=== PATIENT | female | born 1970 | race Native Hawaiian/Other Pacific Islander ===

== ENCOUNTER → 2024-08-11 | Outpatient (CLI) | payer MEDICAID, SELFPAY ==
--- NOTE | 2024-08-11 | XR_ITS ---
Examination: Diagnostic digital mammography, bilateral Computer aided detection 3-D breast Tomosynthesis, bilateral Date and time of exam: August 11, 2024 0950 hours Outside mammogram April 25, 2022 focal asymmetry right breast 8 mm upper outer right breast Technique: Nonmagnified MLO, CC views of the breasts to been obtained, reconstructed from 3-D Tomosynthesis images. R2 computer aided detection program utilized for evaluation of suspicious masses and/or abnormal calcifications. 3-D Tomosynthesis images obtained. Findings: Scattered areas of fibroglandular density No suspicious mass Impression: BI-RADS Category 0: Incomplete: Need additional imaging evaluation Recommend right breast sonography follow-up.
--- NOTE | 2024-08-11 09:00 | XR_ITS ---
Examination: Breast ultrasound, unilateral, right complete Date and time of exam: August 03, 2024 1109 hours Comparison July 11, 2022 INDICATIONS: History right breast lump, focal asymmetry outer right breast on outside mammogram July 11, 2022 Technique: Real-time friedman scale ultrasonographic imaging performed right breast including all 4 quadrants as well as nipple retroareolar and axillary region. Findings: No cystic or solid mass IMPRESSION: BI-RADS Category 1: Negative study
== END | disposition home or self-care (01) ==
PROVIDERS: PCP Family Medicine; Referring Provider Student in an Organized Health Care Education/Training Program; Visit Provider Student in an Organized Health Care Education/Training Program
DX: R92.8 Other abnormal and inconclusive findings on diagnostic imaging of breast (principal)
CPT/HCPCS: 76641; 77062; 77066; G0279

== ENCOUNTER 2024-10-25 03:00 | Emergency (ER) | payer MEDICAID, SELFPAY ==
[2024-10-25 03:16] VITALS: BP 129/85; PULSE 97; RESP 18; TEMP 36.9; O2SAT 98
--- NOTE | 2024-10-25 03:29 | EDNOTE_ITS ---
<Statement entered by Lisa Ordoñez MD - 10/27/24 18:54> As co-signing physician, I was present and available for consult prn. I concur with the plan and care as documented by the midlevel provider. Nausea/Vomit./Diarrhea-RME/HPI General Chief complaint: General Adult/Misc Complain Stated complaint: VOMITING,CONSTIPATION Time Seen by Provider: 10/25/24 03:26 Arrival date/time: 10/25/24 03:00 54F with no significant PMH presents to ED with 1 day of N/V and excessive burping. Also some constipation. Patient was recently off of Wegovy at 2.4 mL for about a month and resumed it today. Limitations: no limitations Related Data Previous Rx's ?Medication ?Instructions ?Recorded acetaminophen 500 mg capsule 1,000 mg (2 x 500 mg) PO Q8HR PRN 01/10/20 pain #60 caps ibuprofen 800 mg tablet 800 mg PO TID PRN pain #30 t abs 01/10/20 metoclopramide HCl 5 mg tablet 5 mg PO BID PRN nausea and 10/25/24 (Reglan) vomiting #14 tabs Allergies Allergy/AdvReac Type Severity Reaction Status Date / Time No Known Allergies Allergy Verified 10/25/24 03:01 Review of Systems Review of Systems Systems Reviewed: All systems reviewed, normal except as documented Constitutional Constitutional: Reports system reviewed and no additional complaints, except as documented, Denies fever(s) and Denies headache(s) ENT Ears, Nose, Mouth, and Throat: Denies disequilibrium and Denies headache(s) Cardiovascular Cardiovascular: Reports system reviewed and no additional complaints, except as documented, Denies chest pain and Denies dyspnea Respiratory Respiratory: Reports system reviewed and no additional complaints, except as documented, Denies cough and Denies dyspnea Gastrointestinal Gastrointestinal: Reports system reviewed and no additional complaints, except as documented, Reports as per HPI, Denies abdominal pain, Reports constipation, Reports nausea and Reports vomiting Neurologic Neurologic: Reports system reviewed and no additional complaints, except as documented, Denies confusion, Denies disequilibrium and Denies headache(s) Psychiatric Psychiatric: Denies confusion Past Medical History Past Medical History CARDIAC: Negative Congestive Heart Failure RESPIRATORY: Negative Chronic Obstructive Pulmonary Disease (COPD) GENITOURINARY: Negative Renal Disease ENDOCRINE: Negative Diabetes Mellitus Type 1 or Diabetes Mellitus Type 2 Social History SMOKING STATUS: Never smoker ED Exam General Limitations: Present no limitations General appearance: Present alert and in no apparent distress Head Head exam: Present atraumatic Eye Eye exam: Present normal appearance, PERRL and EOMI ENT ENT exam: Present normal exam, normal oropharynx and mucous membranes moist Neck Neck exam: Present normal inspection, full ROM and trachea midline Chest Chest inspection: Present normal inspection and symmetric chest wall rise Respiratory Respiratory exam: Present normal lung sounds bilaterally Cardiovascular Cardiovascular exam: Present regular rate, normal rhythm and normal heart sounds Abdominal Exam Abdominal exam: Present soft and normal bowel sounds Extremities Exam Extremities exam: Present normal inspection and full ROM Back Exam Back exam: Present normal inspection and full ROM Neurological Exam Neurological exam: Present alert, oriented X3 and CN II-XII intact Psychiatric Psychiatric exam: Present normal affect and normal mood Skin Skin exam: Present warm, dry, intact and normal color Course Quality Measures none Orders Category Date Time Status Famotidine [Pepcid] Med 10/25/24 03:26 Discontinued 40 mg PO X1 ONE Metoclopramide Inj [Reglan Inj] Med 10/25/24 03:26 Discontinued 10 mg IM X1 ONE mg Hyd/Al Hyd/Marie Susp [Maalox Susp] Med 10/25/24 03:26 Discontinued 30 ml PO X1 ONE Vital Signs Vital signs: Vital Signs Temperature 98.5 F 10/25/24 03:16 Pulse Rate 97 10/25/24 03:16 Respiratory Rate 18 10/25/24 03:16 Blood Pressure 129/85 H 10/25/24 03:16 Pulse Oximetry (%) 98 10/25/24 03:16 Oxygen Delivery Method Room Air 10/25/24 03:16 O2 at 98% on RA and WNLs Nausea/Vomiting/Diarrhea MDM Narrative MDM Narrative:: 54F with no significant PMH presents to ED with 1 day of N/V and excessive burping. Also some constipation. Patient was recently off of Wegovy at 2.4 mL for about a month and resumed it today. Physical exam reveals no ab tenderness. Patient is afebrile, calm, and alert. Meds improved symptoms. PO challenge passed. Patient data External records reviewed:: [facility] previous records Clinical information provided by:: patient Social determinants that could affect healthcare access:: none Patient has the following chronic illnesses:: none How is presenting disease/condition affected by chronic disease/condition?: no chronic disease Evaluation data The following diagnostics were reviewed and interpreted by me:: other (specify) (none) Lab and/or radiology exams considered but not ordered:: not ordered Interpretation Summary: n/a Medications / Prescriptions Medications / Prescriptions considered but not ordered:: ordered Medication administrations:: Medication Administration History Discontinued Medications Al Hydrox/Mg Hydrox/Simethicone (Mg Hyd/Al Hyd/Marie (Maalox Reg) Susp 30 Ml Udc) 30 ml PO X1 ONE Stop: 10/25/24 03:27 Last Admin: 10/25/24 04:02 Dose: 30 ml Documented By: CVL Famotidine (Famotidine 20 Mg Tablet) 40 mg PO X1 ONE Stop: 10/25/24 03:27 Last Admin: 10/25/24 04:01 Dose: 40 mg Documented By: CVL Metoclopramide HCl (Metoclopramide Inj 5 Mg/Ml Vial 2 Ml) 10 mg IM X1 ONE; Protocol Stop: 10/25/24 03:27 Last Admin: 10/25/24 03:43 Dose: 10 mg Documented By: EE above Consultations Consultation(s) initiated? (list below): No Diagnosis Nausea Differential Diagnosis: traveler's diarrhea, food poisoning, gastroenteritis, clostridium difficile infection, drug-induced nausea and vomiting and dehydration Most likely diagnosis given after review of the tests above:: drug-induced N/V Admission Indicated Admission indicated?: not indicated Admission Request Was there a request for admission?: No Disposition Plan Disposition Plan: Discharge Discharge Attestation Discharge Attestation: The patient and all family members were given an opportunity to ask questions and understood the discharge instructions. Discharge instructions specifically effects, indications for sooner follow up or return to the emergency department, and the expected course of current diagnosis. Patient condition: Stable Discharge Plan Plan Patient Disposition: HOME (Self Care) Discharge Disposition comment: Stable Prescriptions/Referrals Prescriptions/Med Rec: New metoclopramide HCl [Reglan] 5 mg tablet 5 mg PO BID PRN (Reason: nausea and vomiting) Qty: 14 0RF No Action ibuprofen 800 mg tablet 800 mg PO TID PRN (Reason: pain) Qty: 30 0RF acetaminophen 500 mg capsule 1,000 mg PO Q8HR PRN (Reason: pain) Qty: 60 0RF Problem List Clinical Impression: Drug-induced nausea and vomiting Patient/Caregiver Discharge Instructions Education Materials: ED Drug Reaction, Other Additional Instructions: Please follow-up with PCP within 24-48 hours and return immediately if symptoms worsen. Print Language: Hebrew Stand Alone Forms: Patient Portal Info Letter PA/INCLUSION SPECIAL EDUCATOR Supervising Physician PA/INCLUSION SPECIAL EDUCATOR Supervising Physician: Dr. Ordoñez
[2024-10-25] MEDS: METOCLOPRAMIDE INJ 5 MG/ML VIAL 2 ML 10 MG IM (03:43)
[2024-10-25] MEDS: FAMOTIDINE 20 MG TABLET 40 MG PO (04:01)
[2024-10-25] MEDS: MG HYD/AL HYD/SIME (Maalox Reg) SUSP 30 ML UDC PO (04:02)
[2024-10-25 04:55] VITALS: RESP 18
== END 2024-10-25 04:55 | disposition home or self-care (01) ==
PROVIDERS: Emergency Provider Emergency Medicine; PCP Physician Assistant
DX: R11.2 Nausea with vomiting, unspecified (principal); T38.3X5A Adverse effect of insulin and oral hypoglycemic [antidiabetic] drugs, initial encounter
CPT/HCPCS: 96372; 99283; J2765; A9270